=== PATIENT | male | born 1955 | race Caucasian/White ===

== ENCOUNTER 2024-10-10 07:59 | Day surgery (SDC) | payer MEDICARE, BC, SELFPAY ==
[2024-10-10] VITALS (11 sets, daily range): BP systolic 111–140; BP diastolic 71–91; BMI 34.6
[2024-10-10 08:32] LABS: Hematocrit 46.5 % (39.0-52.0); Hemoglobin 15.9 g/dL (13.0-18.0); Mean Corp Hgb Conc. 34.2 g/dL (33.0-37.0); Mean Corpuscular Volume 99.6 fL (80.0-94.0); Platelet Count 246 10^3/uL (130-400); Red Blood Cell Count 4.67 10^6/uL (4.70-6.10); Red Cell Dist. Width 13.5 % (11.5-14.5); White Blood Cell Count 5.6 10^3/uL (4.8-10.8)
[2024-10-10 08:42] LABS: ALT (SGPT) 47 U/L (0-50); AST (SGOT) 41 U/L (17-59); Albumin 4.1 g/dl (3.5-5.0); Alkaline Phosphatase 60 U/L (38-126); Blood Urea Nitrogen 12 mg/dl (9-20); Calcium 9.1 mg/dl (8.4-10.2); Carbon Dioxide 27 mmol/L (22-30); Chloride 107 mmol/L (98-107); Estimated Creatinine Clearance 108 ml/min; Glucose 102 mg/dl (70-99); INR 0.88; PT 12.4 Sec (11.4-14.6); Potassium 4.6 mmol/L (3.5-5.1); Sodium 144 mmol/L (135-145); Total Bilirubin 1.4 mg/dl (0.2-1.3); Total Protein 6.7 g/dl (6.3-8.2); eGFR > 60.00
[2024-10-10 08:46] LABS: Glucose - Point of Care 96 mg/dl (70-99)
[2024-10-10 12:16] LABS: ACT-LR - POC 265 Seconds (116-155)
--- NOTE | 2024-10-10 12:46 | ITS.CL.ABL ---
[employer] Developer - Ablation
Ablation
Procedure Report:
ELECTROPHYSIOLOGY ABLATION STUDY
�
DATE:: October 10, 2024�����������������������������REFERRING: Dr. Alcides Shoemaker
�
INDICATION: Persistent supraventricular tachycardia in the form of atrial flutter. Prior history of atrial fibrillation and pulmonary vein isolation procedure.
�
HISTORY: See H and P.��As above
�
ANTIARRHYTHMIC DRUG: As per HPI
�
PRE-PROCEDURE LY: The patient communicated noncompliance with evening Eliquis over the last month so a LY was performed after intubation demonstrating no atrial thrombus and normal ejection fraction and no TORO thrombus. We then proceeded to
procedure
�
PRESENTING RHYTHM: Typical atrial flutter which was counterclockwise about the tricuspid valve cycle length 230 ms. This was a new arrhythmia by history.
�
'TIME-OUT':��called and confirmed.
�
SEDATION/ANESTHESIA:��provided via the anesthesia department using general anesthesia (LMA).
�
INTRAVENOUS/ARTERIAL ACCESS:
Right femoral venous - 8Fr
Left femoral venous - 8 Fr, 6 Fr
Itycpt-db-fxphg suture bilateral femoral venous sites
Ultrasound guidance for bilateral femoral vein access was utilized by me to obtain access with demonstration of normal anatomy
CHADS-VASC Score:
�
HAS-Bled Score
�
PROCEDURE:
1.��A decapolar CS catheter was placed within the CS for mapping and pacing.��This was also used as the reference catheter for the 3-D map. Multipolar catheter was brought to the right atrium demonstrating the entire cycle length in the right
atrium with activation counterclockwise around the tricuspid valve and entrainment maneuvers from the lateral CTI, proximal CTI, and distal coronary sinus demonstrating PPI equal to tachycardia cycle length at the lateral isthmus and septal isthmus
and PPI greater than tachycardia cycle length at the lateral coronary sinus�left atrium. As such activation entrainment mapping demonstrated counterclockwise CTI flutter and the Maty pulse catheter was brought in flower post to the lateral isthmus
after 100 mics of nitroglycerin was given through the long sheath. Sequential deliveries and flower pose from the lateral valve down and back towards the IVC slowed and terminated the tachycardia. Bidirectional block was seen intra isthmus
conduction time 155 ms bidirectionally with pacing from the coronary sinus. We then proceeded to transseptal puncture to interrogate the prior pulmonary vein ablation and address additional LA substrate. 0.2 mg of glycopyrrolate were given prior
to transseptal puncture.
�
2. The intracardiac ultrasound catheter was positioned in the RA to identify the FO for targeting of transseptal puncture, assist��in identification of the pulmonary vein ostia, monitoring pre and post ablation pulmonary vein flow velocities,
monitoring for 'bubble' formation during RF application as a sign of thermal injury,��and to monitor for pericardial effusion during mapping and ablation procedure.���Left atrial size, LV ejection fraction, and pulmonary vein flows were monitored
pre and post ablation procedure. The other valves were inspected and found to be free of significant regurgitation or stenosis.
�
3.��Half of the calculated heparin bolus was administered prior to the first transeptal puncture.��Transseptal puncture was performed to diagnose RA and LA pressure so that safety of LA mapping and ablation could be further assessed, and to access
the left atrium and pulmonary veins for mapping and ablation.��This entailed advancing an 16.8 Hungarian sheath and RF wire with dilator into the superior vena cava and withdrawing both (monitoring intracardiac ultrasound, fluoroscopy and tip pressure)
with the tip oriented toward the atrial septum.��The fossa ovalis was engaged (indicated by sudden displacement of the sheath tip as well as tenting of the fossa seen on intracardiac ultrasound).��Left atrial access required a pass with the
Brockenbrough needle extended.��Left atrial catheter position was confirmed by pressure monitoring (RA mean pressure 8 mm Hg and LA mean presure 14 mm Hg), LA saturation (99%),��as well as fluoroscopy.��The sheath was advanced over the dilator and
positioned in the left atrium.��This procedure was repeated for the Agilis sheath.��The remainder of the calculated heparin bolus was administered and heparin was
infused to maintain ACT at 300 -350 seconds throughout the case.
�
4.��RA pacing was performed via the proximal decapolar poles and LA pacing was performed via the distal decapolr poles.
�
5. A quadrapolar catheter was first positioned at the His position for His Bundle recording which was tagged via the 3-D Navex sytem, and then passed to the RVA for RV pacing and recording.
�
6. The multipolar catheter and the Maty wave catheter were placed in each of the LIPV, LSPV, RSPV and the RIPV.��The left pulmonary veins were chronically isolated and the right pulmonary veins were chronically isolated except for the septal constantine.
�
7.��Next, a 3-D map was created using Navex.���A 3-D reconstructed CT image was compared to the 3-D Navex map to assist in anatomic interpretation, mapping and ablation.��The CT image and the NavX image were fused.
�
8. Additional pulmonary vein lesions were given to the septal constantine of the right superior and right inferior pulmonary veins as well as lesions to the floor of the left inferior pulmonary vein. This performed and all of and basket pose. And
flower pose the posterior wall from floor to roof was addressed with a total of 54 lesions total including the right atrial and left atrial lesions. Entrance and exit block was confirmed in all 4 pulmonary veins and electrical silence in the left
atrial posterior wall floor was confirmed.
9. Normal sinus node and AV node function were noted. Intracardiac echo demonstrated normal ejection fraction with normal wall motion abnormality in the left ventricle post procedure without pericardial effusion.
�
TOTAL FLOURO TIME: 15.6 minutes 153 mGy
�
TOTAL RF DURATION: 0 minutes
�
REVERSAL OF HEPARIN: 35 mg of protamine, slow IV administration
�
COMPLICATIONS:
None
Intracardiac US shows no pericardial effusion post ablation.
�
SUMMARY:��
Complex left atrial mapping and ablation.
CTI flutter ablation for clinical counterclockwise CTI flutter. Reisolation of the septal constantine of the right veins and left atrial posterior wall isolation with entrance and exit block in all 4 pulm rains and left atrial posterior wall.
�
RECOMMENDATIONS:
1. Ambulate in 4 hours
2. Resume anticoagulation. 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
3.��Consider same-day discharge
4.� Will see the patient in 3 months
�
Copy to: Dr. Carlitos Shoemaker
�
--- NOTE | 2024-10-10 15:17 | W.PN.UPDATE ---
Update Note
Progress Note Update
69 yo WM s/p redo PVI, CTI flutter ablation (same day). He denies cp, sob, iesha clears, EKG SR bifascicular block, b/l groins soft R groin with some drainage. He will resume Eliquis tonight at 6pm. He will continue metoprolol xl 200mg daily for now.
Activity restrictions reviewed. He will f/u Dr. Valencia in 2 mo. He is for d/c home after 530p if groins stable and voiding.
SUMMARY:��
Complex left atrial mapping and ablation.
CTI flutter ablation for clinical counterclockwise CTI flutter. Reisolation of the septal constantine of the right veins and left atrial posterior wall isolation with entrance and exit block in all 4 pulm rains and left atrial posterior wall.
�
RECOMMENDATIONS:
1. Ambulate in 4 hours
2. Resume anticoagulation. 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
3.��Consider same-day discharge
4.� Will see the patient in 3 months
�
Copy to: Dr. Carlitos Shoemaker
[2024-10-10] MEDS: TOPROL XL 200 MG PO (15:35)
--- NOTE | 2024-10-10 16:42 | PTCARENOTE ---
PT WITH OOZE AT LEFT GROIN SITE. FO8 REMOVED AND PRESSURE HELD. STERILE 4X4 AND TEGADERM APPLIED. KAREEM ABEL AWARE
--- NOTE | 2024-10-10 17:11 | PTCARENOTE ---
PT OOB WALKING IN RECOVERY AND VOIDED IN BR. B/L GROIN SITE DSG C/D/AND I.
== END 2024-10-10 17:24 | disposition home or self-care (01) ==
LOC: CATH 07:59
PROVIDERS: ATTENDING PHYSICIAN Internal Medicine Cardiovascular Disease; FAMILY PHYSICIAN Family Medicine
DX: I47.10 Supraventricular tachycardia, unspecified (principal); I48.3 Typical atrial flutter; I48.91 Unspecified atrial fibrillation; I45.2 Bifascicular block; I08.3 Combined rheumatic disorders of mitral, aortic and tricuspid valves; I25.10 Atherosclerotic heart disease of native coronary artery without angina pectoris; I10 Essential (primary) hypertension; E78.5 Hyperlipidemia, unspecified; E11.9 Type 2 diabetes mellitus without complications; K21.9 Gastro-esophageal reflux disease without esophagitis; J44.9 Chronic obstructive pulmonary disease, unspecified; Z95.1 Presence of aortocoronary bypass graft; Z87.891 Personal history of nicotine dependence; Z85.820 Personal history of malignant melanoma of skin; Z79.01 Long term (current) use of anticoagulants; Z79.02 Long term (current) use of antithrombotics/antiplatelets; Z79.84 Long term (current) use of oral hypoglycemic drugs; Z79.85 Long-term (current) use of injectable non-insulin antidiabetic drugs
CPT/HCPCS: 93312; 93320; 93325; C1732; C1894; C1730; C1769; C1892; C1759; 80053; 82962; 85027; 85347; 85610; 86850; 86900; 86901; 93005; 93655; 93656; 93657; C1733; C1766

== ENCOUNTER 2025-04-01 06:25 | Inpatient (IN) | payer MEDICARE, BC, SELFPAY ==
[2025-03-17 10:10] VITALS: BMI 37.1
[2025-03-17 10:35] LABS: % Basophils 0.6 % (0-2); % Eosinophils 2.2 % (0-6); % Immature Granulocytes 0.2 % (0-0.5); % Lymphocytes 21.2 % (20.5-51.1); % Monocytes 9.3 % (1.7-9.3); % Neutrophils 66.5 % (42.2-75.2); Absolute Eosinophils 0.1 10^3/uL (0-0.7); Absolute Lymphocytes 1.1 10^3/uL (1.2-3.4); Absolute Monocytes 0.5 10^3/uL (0.1-0.6); Absolute Neutrophils 3.6 10^3/uL (1.4-6.5); Hematocrit 44.7 % (39.0-52.0); Hemoglobin 15.1 g/dL (13.0-18.0); Mean Corp Hgb Conc. 33.8 g/dL (33.0-37.0); Mean Corpuscular Hgb 33.9 pg (27.0-31.0); Mean Corpuscular Volume 100.2 fL (80.0-94.0); Mean Platelet Volume 9.1 fL (7.4-10.4); Nucleated Red Blood Cells % 0 % (-); Platelet Count 227 10^3/uL (130-400); Red Blood Cell Count 4.46 10^6/uL (4.70-6.10); Red Cell Dist. Width 12.6 % (11.5-14.5); White Blood Cell Count 5.4 10^3/uL (4.8-10.8)
[2025-03-17 10:46] LABS: INR 0.94; PT 12.9 Sec (11.4-14.6)
[2025-03-17 10:51] LABS: ALT (SGPT) 30 U/L (0-50); AST (SGOT) 32 U/L (17-59); Albumin 4.5 g/dl (3.5-5.0); Alkaline Phosphatase 66 U/L (38-126); Blood Urea Nitrogen 15 mg/dl (9-20); Calcium 9.3 mg/dl (8.4-10.2); Carbon Dioxide 23 mmol/L (22-30); Chloride 106 mmol/L (98-107); Estimated Creatinine Clearance 95 ml/min; Glucose 123 mg/dl (70-99); Potassium 4.3 mmol/L (3.5-5.1); Sodium 142 mmol/L (135-145); Total Bilirubin 1.3 mg/dl (0.2-1.3); Total Protein 6.9 g/dl (6.3-8.2); eGFR > 60.00
--- NOTE | 2025-03-17 10:53 | HPS.HSE ---
Family Physician
-
Family Physician: Dariela Duarte
Chief Complaint
-
Persistent atrial fibrillation.
History of Present Illness
The patient is a 70 year old male presenting today for persistent atrial fibrillation. The patient was first diagnosed with this arrhythmia prior to his cataract extraction by his spouse who is a primary care physician. He does report
occasional lightheadedness associated with this diagnosis. He underwent pulmonary vein isolation in May 2023 and a redo-PVI with CTI flutter ablation in September 2024 for recurrent atrial fibrillation and atrial flutter. He is on current
pharmacological therapy with Metoprolol Succinate. He does report compliance with Eliquis for oral anticoagulation due to a [id number] of 3. Of note, he does report significant bruising while on Eliquis. He also reports frequent epistaxis which is
often difficult to control while on his blood thinner. It is recommended he proceed with a Watchman implant at this time given his increased risk for thromboembolic events as well as bleeding while remaining on Eliquis. He denies any current
complaints today such as chest pain, shortness of breath, nausea, vomiting, diarrhea, dizziness, cough, sore throat, or fever.
Medical History
Past Medical History
Past Medical History: Reports Other
Additional Past Medical History:
1. Persistent atrial fibrillation and atrial flutter, status post pulmonary vein isolation, 05/2023, and redo pulmonary vein isolation and CTI flutter ablation 09/2024; pharmacological therapy with Metoprolol Succinate and oral anticoagulation with
Eliquis.
2. Hypertension.
3. Hyperlipidemia.
4. Coronary artery disease status post CABG x2, 2010, PCI with drug-eluting stent to [id number], and PCI with drug-eluting stent to proximal LAD 201; on Plavix.
5. Bifascicular heart block.
6. COPD.
7. Non insulin-dependent diabetes with neuropathy.
8. GERD.
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
10. Melanoma in situ, status post excision.
11. Depression.
12. Recurrent epistaxis.
13. Obesity, BMI 37.1.
14. Infrequent tobacco abuse.
15. Daily alcohol.
Past Surgical History: Reports Other
Additional Past Surgical History:
1. Pulmonary vein isolation.
2. Redo pulmonary vein isolation and CTI flutter ablation.
3. CABG x2.
4. PCI with drug eluting stent to OM1.
5. PCI with drug eluting stent to proximal LAD.
6. Transesophageal echocardiogram.
7. Melanoma in situ excision.
8. Cataract extraction.
Social History
Tobacco: Former Smoker (He is a former 1 and 1/2 pack per day cigarette smoker who quit cigarette smoking in 2007. He occasionally will smoke a cigar. )
Alcohol: Daily (He reportedly drinks 3 alcoholic beverages daily. He prefers whiskey and bourbon. )
Living: Other (He lives with his spouse in a 2 story home. )
Family History
Family History: Not pertinent
Allergies / Home Medications
Allergy/Medication List:
Home medications:
1. Amlodipine/benazepril 5-40 mg p.o. daily.
2. Eliquis 5 mg p.o. twice a day.
3. Plavix 75 mg p.o. daily.
4. Vascepa 2 gm p.o. daily.
5. Jardiance 25 mg p.o. daily.
6. Metoprolol Succinate 200 mg p.o. daily.
7. Pantoprazole 40 mg p.o. daily.
8. Centrum multivitamin 1 tablet p.o. daily.
9. Trelegy Ellipta 1 inhalation daily.
10. CoQ10 200 mg p.o. daily.
11. Repatha 140 mg subcutaneous every 2 weeks.
12. Zetia 10 mg p.o. daily.
13. Gabapentin 100 mg p.o. twice a day.
14. Ozempic 2 mg subcutaneous on Tuesdays.
15. Testosterone 2 pumps transdermal daily.
ALLERGIES: No known drug allergies.
Review of Systems
-
A 12 point ROS was completed and negative except as noted: Yes
Physical Exam
Vital Signs
Blood pressure 125/76. Heart rate 82. Respirations 18. Pulse ox 94%, increasing to 97% with encouraged deep breathing.
Height 5 feet, 11.5 inches. Weight 122.5 kg. BMI 37.1.
Physical Exam
General: Well Developed, Well Nourished and No Apparent Distress
HEENT: Other (Left eye ptosis noted. )
Respiratory: Clear
Cardiac: Regular Rhythm
GI: Soft, Non Tender, Non Distended and Other (Obese. )
Musculoskeletal: No Edema and Normal Gait & Station
Skin: Warm and Dry
Neuro: AO x 3 and Nonfocal/grossly intact
Laboratory Results
-
03/17/25 10:19
03/17/25 10:19
Laboratory Results
PT 12.9 Sec (11.4-14.6) 03/17/25 10:19
INR 0.94 03/17/25 10:19
Total Bilirubin 1.3 mg/dl (0.2-1.3) 03/17/25 10:19
AST 32 U/L (17-59) 03/17/25 10:19
ALT 30 U/L (0-50) 03/17/25 10:19
Alkaline Phosphatase 66 U/L (38-126) 03/17/25 10:19
Type and screen O positive.
MRSA screen negative.
EKG 03/17/2025: Normal sinus rhythm. Left axis deviation. Right bundle branch block.
Transesophageal echocardiogram 10/10/2024: Normal left ventricular size, wall thickness, and systolic function. No regional wall motion abnormalities are seen. The ejection fraction is estimated at 50-55%. Normal right ventricular size and function.
No thrombus detected in the left atrial appendage.
Impression/Plan
-
IMPRESSION/PLAN:
1. Persistent atrial fibrillation: The patient is in need of a Watchman implant with Dr. George Valencia on 04/01/2025 due to his history of recurrent epistaxis and frequent bruising. The benefits and risks of the procedure have been explained to the
patient. The patient understands these risks and wishes to proceed. He will need to be on uninterrupted oral anticoagulation post-procedure. In 3 months time, he will undergo a post-Watchman transesophageal echocardiogram. Should his device be well
seated and without significant leaks, he likely will be transitioned off Eliquis. He would then likely start a baby Aspirin daily, for which he would remain on indefinitely.
[2025-04-01] VITALS (13 sets, daily range): BP systolic 102–144; BP diastolic 63–75
[2025-04-01 08:44] LABS: Glucose - Point of Care 108 mg/dl (70-99)
--- NOTE | 2025-04-01 09:14 | ITS.CL.PN ---
Mail Service Coordinator - Procedure Note
Procedure
Procedure Note:
Watchman implantation report
Date April 01, 2025
History: Prior history of coronary artery bypass surgery and A-fib ablation for symptomatic atrial fibrillation
Referring: Dr. Carlitos Shoemaker
Procedure report:
After informed consent and patient safety timeout the patient was sedated by the anesthesiology service under general anesthesia. Dr. Danielle performed a transesophageal echocardiogram. There was no left atrial Penders thrombus with normal
ejection fraction and no pericardial fusion pre and post procedure. Transesophageal echo was utilized to guide transseptal puncture and delivery of the device as well as device based measurements to fill device implantation criteria.
Transseptal derrick boat operator and groin access: Dr. Barajas
Device delivery: Dr. Valencia
Procedure report:
Under ultrasound guidance an 8 Swedish short sheath was placed by Dr. Barajas which was upgraded to the watchman sheath and under LY guidance with the radiofrequency wire and dilator apparatus was engaged into the interatrial fossa after draw down
from the SVC. Tenting in a mid mid position was seen in the radiofrequency wire access the left atrium and advanced into the left atrial appendage proper. The pigtail wire was withdrawn and a pigtail was placed in the left atrial appendage and dye
imaging demonstrated a cauliflower left atrial appendage morphology with a 15 to 19 mm ostium.
As such we chose a 24 mm device which was delivered distally into an ostial�distal position covering all of the left atrial appendage proper with a prominent ligament of Francis posteriorly without trabeculations. Transesophageal echo imaging was
extremely difficult perhaps due to prior cardiac surgery but we were able to get a 0 degree and 90 degree visualization of the left atrial appendage although device measurements were somewhat limited due to this difficulty. Visually the device was
delivered ostial-slightly distal with dye imaging demonstrated a good seal of the left atrial appendage covering the trabeculations and visually the device looks significantly compressed. At 0 degrees there was 1 measurement of 12% compression
although consistently multiple measurements at 90 degrees with X-plane for orthogonal views demonstrated 22 to 25% compression. As stated above visually on fluoroscopy the device looked appropriately compressed at the length of the device. There
was no device leaks and tug test did not demonstrably move the device more ostially. As such we discussed alternative options of more proximal placement of the 24 mm device and an alternative size device with 27 mm but there was concern of less
compression with a more antral delivery of the 24 mm device and 27 mm device given the baseline morphology of the appendage. Given that this device in the initial placement met Pass criteria the device was deployed and the patient tolerated the
procedure well. 25 mg of protamine and fggosl-fi-lfilp suture was given after heparin was reversed. Heparin was given to maintain an ACT greater than 300 seconds.
Impression:
24 mm Watchman device delivery
Eliquis 5 mg p.o. twice daily and Plavix for 3 months and then Plavix only
[2025-04-01 10:24] LABS: Glucose - Point of Care 109 mg/dl (70-99)
--- NOTE | 2025-04-01 13:12 | W.DS.TRANS ---
DC Summary - Skin Care Therapist
-
Discharge Instructions:
Discharge Diagnosis/Procedures Watchman device implant
Diet Low Cholesterol,Low Sodium
Driving Restrictions No driving for 24 hours
Others Tests Follow up LY is scheduled at [facility] on 07/03/2025. Preadmission testing
appointment is 06/23/2025 at 10am in [facility]. You
will receive instructions in the mail.
Instructions:
Stand-Alone Forms: DC Instructions- Cath/EP Lab
Changes to Home Medications: No
Discharge Medications:
DC Medications w/original date entered in [employer]
clopidogrel 75 mg tablet (Plavix) 75 mg PO DAILY ##90 02/17/17
coenzyme Q10 200 mg capsule 200 mg PO DAILY 02/17/17
ezetimibe 10 mg tablet (Zetia) 10 mg PO DAILY 02/17/17
pantoprazole 40 mg tablet,delayed release 50 mg PO DAILY 02/17/17
empagliflozin 25 mg tablet (Jardiance) 25 mg PO DAILY 10/29/21
icosapent ethyl 1 gram capsule (Vascepa) 2 gm PO DAILY 10/29/21
metoprolol succinate 200 mg tablet,extended release 24 hr 200 mg PO DAILY 10/29/21
apixaban 5 mg tablet (Eliquis) 5 mg PO BID 05/04/23
amlodipine 5 mg-benazepril 40 mg capsule 1 cap PO DAILY 05/12/23
gabapentin 100 mg tablet 100 mg PO BID 05/24/23
semaglutide 2 mg/dose (8 mg/3 mL) subcutaneous pen injector (Ozempic) 2 mg SC TU 05/24/23
usevyekz-py-guhsp 300 mcg-K 60 mcg-lycop 600 mcg-lutein 300 mcg tablet (Centrum Silver Men) 1 tab PO DAILY 10/10/24
testosterone 12.5 mg/1.25 gram per pump actuation (1%) transdermal gel 2 pump transdermal DAILY 10/10/24
evolocumab 140 mg/mL subcutaneous pen injector (Repatha SureClick) 140 mg SC Q2W 03/13/25
fluticasone fur. 100 mcg-umeclid 62.5 mcg-vilant 25 mcg inhalat.powder (Trelegy Ellipta) 1 inh inhalation DAILY 03/13/25
Home Medication Changes
Pending Results: No
--- NOTE | 2025-04-02 11:00 | WATCHMAN.MD ---
Watchman Implant
-
ELECTROPHYSIOLOGY/INTERVENTIONAL PROCEDURE REPORT
Date of Procedure: April 01, 2025
Referring: Carlitos Naylor
Assisting Physician: George Valencia
PROCEDURES:
1. Left atrial appendage occlusion device using 24 mm WATCHMAN FLX device
2. Ultrasound-guided right common femoral venous access
INDICATION: High [id number] warranting long-term full anticoagulation but inability to do this given his bleeding risk/bleeding complication. History of coronary artery bypass grafting and prior A-fib ablation.
ACCESS: Right common femoral vein, 16Fr sheath, under US guidance using micropunture kit.
Ultrasound was utilized for vascular access. The right femoral vein was visualized under ultrasound, and the vessels was patent. An image was stored permanently in the patient's medical record. Under direct ultrasound guidance, an 16 Bangladeshi
sheath was inserted into the right common femoral vein, using a micropuncture kit through a modified Seldinger technique.
HEMODYNAMICS : (mmHg)
LA Pressure:
PROCEDURE REPORT:
After informed consent and patient safety 'Timeout' the patient was intubated and sedated by the anesthesiology service. Under ultrasound guidance, the right femoral vein was accessed by Dr. Leena Barajas for transseptal puncture. Concomitant
transesophageal echocardiogram was performed by Dr. Israel Danielle
Baseline intracardiac ultrasound demonstrated no pericardial effusion and baseline LY images revealed a trace pericardial effusion.
After ruling out a left atrial appendage thrombus, the patient was heparinized for an ACT between 350-400 seconds and under LY guidance transseptal puncture was performed by Dr. Leena Barajas using the [employer] VersaCross trans-septal system in a
mid position on the inferior-superior axis and a mid position on the anterior-posterior axis. Left atrial pressure was 12 millimeters mercury.
Once transseptal puncture was performed over the [place] Versacross pigtail 0.035 wire, which was parked in the body of left atrial appendage, the [employer] access double curve sheath was advanced over this into the left atrium. A 5 Bangladeshi pigtail
catheter was placed into the left atrial appendage and an appendage gram was performed using intravenous contrast dye demonstrating a chicken wing type anatomy that was suitable likely for a 20 mm WATCHMAN FLX device.
After appropriately prepping the device, Dr. George Valencia successfully deployed a 20 mm WATCHMAN FLX device. Device showed excellent positioning with no leaks post device deployment. 12 to 25% compression was noted in the device after deployment. A
'tug-test' was performed demonstrating stability of the device. Given PASS criteria were met, the device was then released successfully by Dr. George Valencia.
Post procedure, LY imaging demonstrated no new or worse pericardial effusion. Sheaths and catheters were removed from the left atrium and heparin was reversed using protamine. Catheters removed from the femoral veins with [id number]-[id number] suture
applied. The patient tolerated the procedure well.
RADIATION SUMMARY: Fluoro Time (min): 9.9, Dose (mGy): 200.4, DAP (Gy.cm2) : 24.4
Closure Device: Figure of 8 suture
CONCLUSIONS
1. Successful deployment of 24 mm WATCHMAN FLX device under LY and ICE guidance.
RECOMMENDATIONS
1. Plan for Eliquis 5 mg twice daily along with daily plavix mg for the next 3 months.
2. 3-month LY post procedure to assess stability of device and rule out any roman-device leaks. If no issues noted on the 3-month LY post watchman placement such as a greater than 5 mm leak, plan would be to stop anticoagulation at that point and
continue daily Plavix.
3. Figure of 8 suture removal prior to discharge.
Copy to: Carlitos Naylor
Leena Barajas MD, [facility], [facility]
[2025-04-02 11:56] LABS: ACT-LR - POC > 397 Seconds (116-155)
[2025-04-02 11:56] LABS: ACT-LR - POC > 397 Seconds (116-155)
== END 2025-04-01 14:00 | disposition home or self-care (01) | DRG 274 ==
LOC: CATH-IN 06:25
PROVIDERS: ADMITTING PHYSICIAN Internal Medicine Cardiovascular Disease; FAMILY PHYSICIAN Family Medicine
PROC: B24BZZ4 Ultrasonography of Heart with Aorta, Transesophageal (ICD-10-PCS; 2025-04-01)
PROC: 02L73DK Occlusion of Left Atrial Appendage with Intraluminal Device, Percutaneous Approach (ICD-10-PCS; 2025-04-01)
DX: I48.19 Other persistent atrial fibrillation (principal); Z00.6 Encounter for examination for normal comparison and control in clinical research program; I48.92 Unspecified atrial flutter; E78.5 Hyperlipidemia, unspecified; I25.10 Atherosclerotic heart disease of native coronary artery without angina pectoris; Z95.1 Presence of aortocoronary bypass graft; K21.9 Gastro-esophageal reflux disease without esophagitis; J44.9 Chronic obstructive pulmonary disease, unspecified; I45.2 Bifascicular block; E11.40 Type 2 diabetes mellitus with diabetic neuropathy, unspecified; Z79.84 Long term (current) use of oral hypoglycemic drugs; G90.2 Horner's syndrome; H02.402 Unspecified ptosis of left eyelid; F32.A Depression, unspecified; Z68.37 Body mass index [BMI] 37.0-37.9, adult; E66.9 Obesity, unspecified; Z95.5 Presence of coronary angioplasty implant and graft; F17.290 Nicotine dependence, other tobacco product, uncomplicated; Z79.01 Long term (current) use of anticoagulants; I10 Essential (primary) hypertension; Z79.02 Long term (current) use of antithrombotics/antiplatelets
CPT/HCPCS: 33340; 36415; 80053; 82962; 85025; 85347; 85610; 86850; 86900; 86901; 87070; 93005; 93355; C1892; C1894; Q9967

== ENCOUNTER → 2025-06-23 10:00 | Outpatient (REF) | payer MEDICARE, BC, SELFPAY | LOC: SDSPAT 10:00 | PROVIDERS: ATTENDING PHYSICIAN Internal Medicine Cardiovascular Disease; FAMILY PHYSICIAN Family Medicine; OTHER PHYSICIAN Internal Medicine Cardiovascular Disease | DX: I48.19 Other persistent atrial fibrillation (principal) | CPT/HCPCS: 93005 ==

== ENCOUNTER 2025-07-03 06:57 | Day surgery (SDC) | payer MEDICARE, BC, SELFPAY ==
--- NOTE | 2025-06-23 09:13 | HPS.HSE ---
Family Physician
-
Family Physician: NO INTERVIEW UNKNOWN
Chief Complaint
-
Persistent atrial fibrillation.
History of Present Illness
The patient is a 70 year old male presenting today for persistent atrial fibrillation. The patient was first diagnosed with this arrhythmia prior to his cataract extraction by his spouse who is a primary care physician. He does report a
history of occasional lightheadedness associated with this diagnosis. He underwent pulmonary vein isolation in May 2023 and a redo-PVI with CTI flutter ablation in September 2024 for recurrent atrial fibrillation and atrial flutter. He is on current
pharmacological therapy with Metoprolol Succinate. He has been on Eliquis for oral anticoagulation due to a [id number] of 3. Of note, he has had significant bruising while on Eliquis. He also reports frequent epistaxis which is often difficult to
control while on his blood thinner. Given his increased risk for thromboembolic events as well as bleeding while remaining on Eliquis, he did undergo a Watchman implant on April 01, 2025. He tolerated this procedure well. He is now 3 months
post-Watchman and is scheduled to undergo a transesophageal echocardiogram to assess the stability of his device. He denies any current complaints today such as chest pain, shortness of breath, nausea, vomiting, diarrhea, dizziness, cough, sore
throat, or fever.
Medical History
Past Medical History
Past Medical History: Reports Other
Additional Past Medical History:
1. Persistent atrial fibrillation and atrial flutter, status post pulmonary vein isolation, 05/2023, redo pulmonary vein isolation and CTI flutter ablation, 09/2024, and Watchman implant 03/2025; pharmacological therapy with Metoprolol Succinate and
oral anticoagulation with Eliquis.
2. Hypertension.
3. Hyperlipidemia.
4. Coronary artery disease status post CABG x2, 2010, PCI with drug-eluting stent to OM1, 2012, and PCI with drug-eluting stent to proximal LAD 2016; on Plavix.
5. Bifascicular heart block.
6. COPD.
7. Non insulin-dependent diabetes with neuropathy.
8. GERD.
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
10. Melanoma in situ, status post excision.
11. Depression.
12. Recurrent epistaxis.
13. Obesity, BMI 38.3.
14. Infrequent tobacco abuse.
15. Daily alcohol.
Past Surgical History: Reports Other
Additional Past Surgical History:
1. Watchman implant.
2. Pulmonary vein isolation.
3. Redo pulmonary vein isolation and CTI flutter ablation.
4. CABG x2.
5. PCI with drug eluting stent to OM1.
6. PCI with drug eluting stent to proximal LAD.
7. Transesophageal echocardiogram.
8. Melanoma in situ excision.
9. Cataract extraction.
Social History
Tobacco: Other (He is a former 1 and 1/2 pack per day cigarette smoker who quit cigarette smoking in 2007. He occasionally will smoke a cigar. )
Alcohol: Daily (He reportedly drinks 3 alcoholic beverages daily. He prefers whiskey and bourbon. )
Living: Other (He lives with his spouse in a 2 story home.)
Family History
Family History: Not pertinent
Allergies / Home Medications
Allergy/Medication List:
Home medications:
1. Amlodipine/benazepril 5-40 mg p.o. daily.
2. Eliquis 5 mg p.o. twice a day.
3. Plavix 75 mg p.o. daily.
4. Vascepa 2 gm p.o. daily.
5. Jardiance 25 mg p.o. daily.
6. Metoprolol Succinate 200 mg p.o. daily.
7. Pantoprazole 40 mg p.o. daily.
8. Centrum multivitamin 1 tablet p.o. daily.
9. Trelegy Ellipta 1 inhalation daily.
10. CoQ10 200 mg p.o. daily.
11. Repatha 140 mg subcutaneous every 2 weeks.
12. Zetia 10 mg p.o. daily.
13. Gabapentin 100 mg p.o. twice a day.
14. Ozempic 2 mg subcutaneous on Tuesdays.
15. Testosterone 2 pumps transdermal daily.
ALLERGIES: No known drug allergies.
Review of Systems
-
A 12 point ROS was completed and negative except as noted: Yes
Physical Exam
Vital Signs
Blood pressure 127/78. Heart rate 83. Respirations 18. Pulse ox 96% on room air.
Height 5 feet, 10 inches. Weight 121 kg. BMI 38.3.
Physical Exam
General: Well Developed, Well Nourished and No Apparent Distress
HEENT: Other (Left eye ptosis noted.)
Respiratory: Clear
GI: Soft, Non Tender, Non Distended and Other (Obese. )
Musculoskeletal: No Edema and Normal Gait & Station
Skin: Warm, Dry and Other (Wound on right forearm noted, covered by sterile dressing. )
Neuro: AO x 3 and Nonfocal/grossly intact
Laboratory Results
-
EKG 06/23/2025: Normal sinus rhythm. Bifascicular block. Compared to the prior EKG of 04/01/2025, no significant change was found.
Transesophageal echocardiogram 04/01/2025: LY imaging performed as part of Watchman procedure. Pre-procedure: Normal left ventricular function. No evidence of left atrial appendage thrombus and no pericardial effusion. Post-procedure: Imaging of
the left atrial appendage was technically limited. On images available the Watchman device appeared to be well-seated with no evidence of leaking around the device by color-flow Doppler.
Transesophageal echocardiogram 10/10/2024: Normal left ventricular size, wall thickness, and systolic function. No regional wall motion abnormalities are seen. The ejection fraction is estimated at 50-55%. Normal right ventricular size and function.
No thrombus detected in the left atrial appendage.
Impression/Plan
-
IMPRESSION/PLAN:
1. Persistent atrial fibrillation: Given he is 3 months post-Watchman, he will need to undergo a transesophageal echocardiogram on 07/03/[address] Ramone Bunch to assess the overall stability of his device. The benefits and risks of the
procedure have been explained to the patient. The patient understands these risks and wishes to proceed. His last dose of Ozempic was 06/22/2025. He is aware that his last dose of Jardiance will be 06/29/2025. Should his device be well seated and
without significant leaks, he likely will be transitioned off Eliquis. He would then likely start a baby Aspirin daily, for which he would remain on indefinitely.
2. Recent right forearm wound: The patient reports that he has been holding his Eliquis over 'the last few days' due to significant bleeding from his wound. His wound today is covered with a sterile dressing. No active signs of infection are noted.
Given his bleeding has significantly decreased, he was advised to restart Eliquis. He is aware he must continue this until his procedure.
[2025-06-23 10:43] VITALS: BMI 38.3
[2025-07-03 07:37] VITALS: BMI 34.3
[2025-07-03 08:10] LABS: Glucose - Point of Care 102 mg/dl (70-99)
== END 2025-07-03 09:45 | disposition home or self-care (01) ==
LOC: CATH 06:57
PROVIDERS: ATTENDING PHYSICIAN Internal Medicine Cardiovascular Disease; FAMILY PHYSICIAN Family Medicine; OTHER PHYSICIAN Internal Medicine Cardiovascular Disease
DX: I48.19 Other persistent atrial fibrillation (principal); I48.92 Unspecified atrial flutter; I08.3 Combined rheumatic disorders of mitral, aortic and tricuspid valves; I10 Essential (primary) hypertension; E78.5 Hyperlipidemia, unspecified; I25.10 Atherosclerotic heart disease of native coronary artery without angina pectoris; Z95.5 Presence of coronary angioplasty implant and graft; Z95.1 Presence of aortocoronary bypass graft; I45.2 Bifascicular block; J44.9 Chronic obstructive pulmonary disease, unspecified; E11.40 Type 2 diabetes mellitus with diabetic neuropathy, unspecified; K21.9 Gastro-esophageal reflux disease without esophagitis; E66.9 Obesity, unspecified; Z68.38 Body mass index [BMI] 38.0-38.9, adult; Z87.891 Personal history of nicotine dependence; Z79.01 Long term (current) use of anticoagulants; Z79.84 Long term (current) use of oral hypoglycemic drugs
CPT/HCPCS: 93312; 93320; 93325; 82962